=== PATIENT | female | born 1950 | race Caucasian/White ===

== ENCOUNTER → 2018-10-29 09:23 | Outpatient (CLI) | payer MEDICARE, OTHER, SELFPAY ==
--- NOTE | 2018-10-29 09:30 | XR_ITS ---
XR chest 2V HISTORY: Cough. Congestion. Illness 2 weeks ITS.REASON: PNEUMONIA ORDERING PHYSICIAN: Dean Landin MD PATIENT AGE: 68 years Technique: PA and lateral chest COMPARISON: April 2015 PA and lateral chest FINDINGS: Focal airspace disease left lung base partially obscuring left hemidiaphragm.-There is atelectasis with associated infiltrate involving anterior aspect of left lower lobe, with posterior displacement of the major fissure evident on lateral view, reflecting the LLL volume loss. The left upper lung field is clear. The right lung appears stable clear unchanged since prior study. No pleural effusion... The heart appears upper normal in size. The terri and mediastinal structures satisfactory. Calcified aortic knob. Chest wall and T-spine unremarkable Normal pulmonary vasculature IMPRESSION Infiltrate with atelectasis LLL Airspace disease left lung base, which partially obscure hemidiaphragm:
== END ==
PROVIDERS: PCP Family Medicine; Visit Provider Family Medicine
DX: J18.1 Lobar pneumonia, unspecified organism (principal)
CPT/HCPCS: 71046

== ENCOUNTER → 2018-11-02 07:33 | Outpatient (CLI) | payer MEDICARE, OTHER, SELFPAY ==
--- NOTE | 2018-11-02 07:35 | US_ITS ---
US aorta HISTORY: Screening for aortic aneurysm ITS.REASON: FHX AAA, HTN COMPARISON: FINDINGS: No evidence of abdominal aortic aneurysm. Common iliacs are unremarkable. IMPRESSION: Negative for abdominal aortic aneurysm
== END ==
PROVIDERS: PCP Family Medicine; Visit Provider Family Medicine
DX: I10 Essential (primary) hypertension (principal); Z82.49 Family history of ischemic heart disease and other diseases of the circulatory system
CPT/HCPCS: 76770

== ENCOUNTER → 2019-01-08 14:57 | Outpatient (CLI) | payer MEDICARE, OTHER, SELFPAY ==
--- NOTE | 2019-01-08 15:08 | XR_ITS ---
XR chest 2V HISTORY: ITS.REASON: COUGH ORDERING PHYSICIAN: Dean Landin MD PATIENT AGE: 68 years COMPARISON: 10/29/2018 FINDINGS: The cardiomediastinal silhouette and pulmonary vascularity are within normal limits. The lungs are clear without infiltrates, suspicious nodules, or pleural effusions. There is increased density in both lung bases along both right and left heart border which is to be due to pericardial fat pads as opposed to underlying pneumonia. This had a similar appearance on 04-28. No acute bony abnormalities. IMPRESSION: No acute finding
== END ==
PROVIDERS: PCP Family Medicine; Visit Provider Family Medicine
DX: R05 Cough (principal)
CPT/HCPCS: 71046

== ENCOUNTER → 2019-03-21 10:14 | Outpatient (CLI) | payer MEDICARE, OTHER, SELFPAY ==
--- NOTE | 2019-03-21 10:46 | CT_ITS ---
CT chest w con HISTORY: ITS.REASON: COUGH, RECENT PNEUMONIA ORDERING PHYSICIAN: Dean Landin MD PATIENT AGE: 68 years COMPARISON: 01/08/2019 Technique: Contrast Used:75ml Optiray 350 Axial images were obtained. Sagittal, and coronal reformatted images are also generated and reviewed. All CT scans at the facility use one or more dose reduction, viz: automated exposure control, ma/kV adjustment per patient size (including targeted exams where dose is matched to indication, i.e. head), or iterative reconstruction technique. FINDINGS: HEART: Coronary artery calcifications MEDIASTINAL AND HILAR STRUCTURES: No mediastinal or hilar mass evident. No dominant adenopathy. PULMONARY ARTERIES: No pulmonary embolus evident. AORTA: No acute finding. No thoracic aortic aneurysm or dissection evident LUNGS: There is mild coarsening of the bronchovascular markings. No lobar consolidation or collapse. There is minimal biapical pleural thickening. Mild left basilar atelectasis. Mild bronchial thickening in the lung bases. PLEURAL SPACES: No significant effusion. No evidence of pneumothorax. BONY STRUCTURES: No acute bony abnormalities apparent. Degenerative changes thoracic spine LYMPH NODES: No enlarged lymph nodes evident UPPER ABDOMEN: Small calcification noted within the fundus of the gallbladder suggesting cholelithiasis. Small hiatal hernia. There is a coarse area of calcification in the right hepatic lobe at 12 mm nonspecific ADDITIONAL FINDINGS: No other significant abnormalities IMPRESSION: 1. Coronary artery calcifications. 2. Coarsened bronchovascular markings with mild left basilar atelectasis and mild bronchial thickening suggesting chronic peribronchial inflammatory change. No lobar consolidation or suspicious pulmonary nodules 3. Small hiatal hernia, cholelithiasis
--- NOTE | 2019-03-21 11:12 | HMH.ITSHM ---
Current Home Medications as stated by this patient Marry Del Valle or assisted sales representative. []LISINOPRIL ROSUVASTATIN METOPROLOL RANITIDINE FEMRING BENZONATATE
== END ==
PROVIDERS: PCP Family Medicine; Visit Provider Family Medicine
DX: R05 Cough (principal); Z87.01 Personal history of pneumonia (recurrent)
CPT/HCPCS: 71260; Q9967

== ENCOUNTER → 2019-04-05 10:58 | Outpatient (CLI) | payer MEDICARE, OTHER, SELFPAY ==
[2019-04-05 12:00] VITALS: PULSE 55; PULSE 58
== END ==
PROVIDERS: PCP Family Medicine; Visit Provider Family Medicine
DX: R05 Cough (principal)
CPT/HCPCS: 94060; 94640